=== PATIENT | female | born 1960 | race Caucasian/White ===

== ENCOUNTER 2016-11-21 12:27 | Emergency (ER) | payer OTHER ==
[~2016-11-21] VITALS: Ht 165.1 cm; Wt 99.3 kg
[~2016-11-21 12:27] MED LIST: BACLOFEN 10MG T10 MG PO; CALTRATE 600 +1 TA1 PO; CYMBALTA30 MG PO; DIAZEPAM5 M1 PO; FLOXIN 0.3%5 ML/BOT OT; HYDROXYZINE 25M25 MG PO; IBUPROFEN 600M600 MG PO; LIDODERM5% TP; LOMOTIL 0.025 M1 TAB PO; LORTAB 500 MG-71 TAB PO; MICRO-K 10 MEQ10 MEQ PO; MIRTAZAPINE15 M1 PO; MUCINEX FAST-M1 EAC2 PO; NAPROXEN SOD.550 MG PO; NEXIUM40 MG PO; NORCO 325 MG-51 TAB PO; NORTRIPTYLINE H10 MG PO; PROMETHAZINE HC25 M1 PO; SKELAXIN800 MG PO; SYNTHROID 0.0.125 MG PO; SYNTHROID 0.10.15 MG PO; TRAMADOL 50MG T50 MG PO; TRIAMCINOL30 GM/TUBE TP; VICODIN 5/500 T1 TAB PO; ZOFRAN ODT4 MG PO
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
--- OUTSIDE RECORDS SUMMARY | 2016-11-21 13:02 | External Medical Summary Rpt ---
Demographics Preferred Language Luxembourger Marital Status Unknown Taoist Affiliation Unknown Race Unknown Ethnic Group Unknown Author Author , Organization [employer] Address Unknown Phone Unavailable Purpose Continuity of Care Document - through 2016 Immunization No patient found.
--- OUTSIDE RECORDS SUMMARY | 2016-11-21 13:02 | External Medical Summary Rpt ---
Author Author TERRELL Stockton, [employer] Organization [employer] Address Unknown Phone Unavailable
--- OUTSIDE RECORDS SUMMARY | 2016-11-21 13:02 | External Medical Summary Rpt ---
Demographics Preferred Language Japanese Marital Status Unknown Lutheran Affiliation Unknown Race Unknown Ethnic Group Unknown Author Author , Organization [employer] Address Unknown Phone Unavailable Purpose Continuity of Care Document - through 2016 Immunization No patient found.
--- OUTSIDE RECORDS SUMMARY | 2016-11-21 13:02 | External Medical Summary Rpt ---
Author Author TERRELL Stockton, [employer] Organization [employer] Address Unknown Phone Unavailable
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
--- OUTSIDE RECORDS SUMMARY | 2016-11-21 13:02 | External Medical Summary Rpt ---
Author Author [employer] Organization [employer] Address Unknown Phone Unavailable Purpose Continuity of Care Document - through 2016
--- NOTE | 2016-11-21 13:14 | Emergency Room Report ---
See Addendum History of Present Illness Time Seen by 1252 Presenting Problem in Triage Pt arrived:Walked Presenting Problem:PT HAS HYPOTENSIVE SINCE TAKING A PROPANELOL 20MG ON MONDAY . DR STEWART ADVISED THEM TO COME HERE . PT HAS CHRONIC HEADACHES AND NECK PAIN Onset of symptoms date/time:11/18/16 or onset unknown for: Treatment Prior to Arrival: CLINICAL INFORMATICS SPEC Provided by: Sepsis Risk Assessment: Temp: 98.4 B/P: 98/77 MAP: 76 Pulse: 89 Resp: 20 Recent fever? N Clinical Suspician of Infection? N Mental Status: 1 - Regular (Normal Baseline) Sepsis Risk:Low Sepsis Risk Have you (or family members/close friends) recently traveled outside the [place]? N If Yes, where/when: Have you had exposure to infectious disease within the past month? N TB? Other? Specify: Patient with chronic pain issues, chronic nausea, also uncontrolled HTN. Placed on Propranaolol on October 29, [address] Stewart and initially on TID then on one daily, but noted four days ago BP was in low 80's. She stopped taking this medication three days ago. She still has somewhat low blood pressure. Reports less PO intake over the last few days. No vomiting. ALLERGIES Coded Allergies: sumatriptan (From IMITREX) (Severe, S-DROP IN B/P 02/01/16) Penicillins (Intermediate, I-HIVES 02/01/16) topiramate (From Topamax) (Intermediate, S-DROP IN B/P 11/03/16) Home Medications Active Scripts Ondansetron (Zofran 4MG Odt) 4 MG PO Q6HP PRN nausea and vomiting #24 ODT Prov: 10/15/13 Reported Medications Lidocaine (Lidoderm) 5 TP DAILY Levothyroxine Sodium (Synthroid 0.125MG) 0.125 MG PO DAILY PROMETHAZINE HCL (Promethazine 25mg Tab) 25 MG PO Q4HP PRN N/V Mirtazapine 15 MG PO DAILY BACLOFEN (Baclofen) 10 MG PO TID POTASSIUM CHL (Potassium Chloride) 99 MG PO BID #2 DIPHENOXYLATE HCL/ATROPINE (Lomotil 2.5-0.025 MG Tablet) 1-2 TAB PO EVERY 4 HRS PRN DIARRHEA OFLOXACIN (Floxin 0.3% Otic Solution 5ML) 1 DROP OT QIDP PRN EYES Dm/PE/Acetaminophen/Doxylamine (Mucinex Fast-Max Nite Cold-Flu) 2 EACH PO PRN PRN COUGH/CONGESTION Tramadol Hcl (Tramadol 50MG) 50 MG PO BID IBUPROFEN MICRONIZED (IBUPROFEN 600MG) 600 MG PO BID-QID Diazepam 5 MG PO QIDPRN NORTRIPTYLINE HCL (Nortriptyline Hydrochloride) 10 MG PO QHS #180 History Medical History General Angina: No CO: No Hypertension? No Hyperlipidemia? No CHF? No DVT? No PE? No COPD? No Asthma? No Anemia? No GERD? No Gastric ulcers? No GI Bleed? No Hernia? No Thyroid Problems? Yes Hypothyroidism? Yes CVA? No Seizures? No Diabetes? No Renal Insuffiency? No End Stage Renal Disease? No UTI? No Stones? No GB Disease: No Nephritic Syndrome? No Asplenia? No Hepatitis? No Sickle Cell Disease? No Arthritis? No Migraines? Yes Cataracts? No Glaucoma? No MRSA? No HIV? No TB? No Anxiety? No Depression? Yes Cancer? Yes Site: THYROID Immunization Hx DT/Tetanus 5-10 YRS Flu 2012-14FSN Pneumonia Refuses Surgical Hx Previous Surgery?Y X 2 TONSILS Tubal Ligation JAW SX PARTIAL THYROIDECTOMY MANAGER OF APPLICATION DEVELOPMENT Hx LMP menopause Family History Family Hx Diabetes Yes CAD Yes Hypertension Yes Hyperlipidemia Yes Cancer Yes TB No Social History Smoking Hx Smoker: Never Smoker Tobacco: No Alcohol Alcohol: No Review of Systems All Other Systems Reviewed and Negative Cardiovascular see HPI, denies chest pain Gastrointestinal see HPI Musculoskeletal see HPI (chronic pain) Physical Exam Vital Signs Vital Signs Date Time Temp Pulse Resp B/P Pulse O2 O2 Flow FiO2 Ox Delivery Rate 11/21 1404 97.4 68 20 109/67 98 11/21 1253 89 98/77 11/21 1253 79 112/71 07 1252 75 101/68 07 1235 98.4 74 20 99/65 98 General Appearance normal appearance, WD/WN, no apparent distress Eye Exam - bilateral eye normal exam, bilateral eye PERRL Neck normal inspection, non-tender, supple, full range of motion Respiratory Status Yes: trachea midline, chest symmetrical, non tender chest. No: respiratory distress, tender on palpation, use of accessory muscles, pain on inspiration, pain on expiration, productive cough, non productive cough. Lung Sounds bilateral: normal breath sounds, lungs clear. Cardiovascular normal exam, regular rate/rhythm, no peripheral edema, no gallop, no JVD, no murmur, no rub, normal peripheral pulses Gastrointestinal normal bowel sounds, normal exam, non tender, soft, no organomegaly, no pulsatile mass, no guarding Extremities normal range of motion Strength 5 Upper Ext (L), 5 Upper Ext (R), 5 Lower Ext (L), 5 Lower Ext (R) Neurologic alert, normal exam, no motor/sensory deficits, oriented x 3 Skin intact, normal color, warm/dry Medical Decision Making LABS/Meds/Orders Pt receiving controlled substance in ED? No Results/Orders Laboratory Tests 11/21/16 1334: Urine Color YELLOW, Urine Appearance CLEAR, Urine pH 6.0, Ur Specific [place] 1.015, Urine Protein NEGATIVE, Urine Ketones NEGATIVE, Urine Blood NEGATIVE, Urine Nitrate NEGATIVE, Urine Bilirubin NEGATIVE, Urine Urobilinogen 0.2, Ur Leukocyte Esterase 1+ H, Urine RBC 3-5, Urine WBC 5-10, Ur Squamous Epith Cells OCC, Urine Bacteria TRACE, Hyaline Casts OCC, Urine Glucose NEGATIVE 11/21/16 1300: Sodium 141, Potassium 4.1, Chloride 106, Carbon Dioxide 30, BUN 17, Creatinine 1.0, Estimated Creat Clear 101, Estimated GFR (MDRD) 58 L, Glucose 105, Calcium 9.0, Total Bilirubin 0.3, AST 19, ALT 39, Alkaline Phosphatase 81, Total Protein 7.1, Albumin 3.2 L, Globulin 3.9 H, Albumin/Globulin Ratio 0.8 L, WBC 6.9, RBC 4.32, Hgb 12.3, Hct 37.7, MCV 87.2, RDW 14.4, Plt Count 180, MPV 6.8 L, Gran % 62.8, Gran # 4.3, Lymphocytes % 28.9, Monocytes % 5.7, Eosinophils % 2.3, Basophils % 0.2, Lymphocytes # 2.0, Monocytes # 0.4, Eosinophils # 0.2, Basophils # 0.0, PUBS MCHC 32.7, MCH 28.5 Current Medication Orders Sig/Brian Start time Last Medication Dose Route Stop Time Status Admin Sodium Chloride 1,000 ML .STK-MED ONE 11/21 1337 DC IV Sodium Chloride 1,000 ML .Q1H1M 11/21 1315 DC 11/21 IV 11/21 1415 1338 Sodium Chloride 10 ML PRN PRN 11/21 1315 AC IV 11/22 1313 Sodium Chloride 10 ML PRN PRN 11/21 1300 AC IV 11/22 1252 Orders Procedure Date/time Status CULTURE, URINE 11/21 1334 Active URINALYSIS/COMPLETE 11/21 1332 Complete IV SALINE LOCK 11/21 1252 Active ORTHOSTATIC B/P 11/21 1252 Active CBC WITH AUTO DIFF 11/21 1252 Complete CHEM 12 PROFILE 11/21 1252 Complete Progress ED Progress Notes Date 11/21/16 Time 1440 Comment BP stable, staying around 108 systolic, feels better s/p IVF Departure Departure Time of Disposition 1440 Disposition DC Home or Self Care(routine) Clinical Impression Primary Impression: Low blood pressure reading Condition STABLE Referrals Terry HENRY,Aldo Hurst (Family) Additional Instructions Stop Propranolol, have Dr. Stewart recheck blood pressure in one to three days. Discharge Counseling Counseled pt/family regarding diagnosis, test results, medications/RX, home care, follow up needs ED Critical Care Critical Care No at 1442
[2016-11-21 13:35] LABS: HEMOGLOBIN 12.3 g/dL (12.2-16.2); LYMPH % 28.9 % (10-50.0)
[2016-11-21 14:06] LABS: URINE BILIRUBIN - DIPSTICK NEGATIVE (NEG); URINE BLOOD NEGATIVE (NEG)
[2016-11-21 14:24] LABS: URINE SQUAMOUS CELLS OCC #/hpf (0-5)
[2016-11-21] MEDS ORDERED: MACROBID100 M3 PO (15:54)
--- NOTE | 2016-11-21 16:02 | RADIOLOGY REPORT PS360 ---
CHEST-PORTABLE HISTORY: weakness ORDERING PHYSICIAN: Maryann Hu MD PATIENT AGE: 56 years COMPARISON: 02/23/2016 FINDINGS: The cardiomediastinal silhouette and pulmonary vascularity are within normal limits. The lungs are clear without infiltrates, suspicious nodules, or pleural effusions. No acute bony abnormalities. IMPRESSION: Negative chest, no acute finding
[2016-11-21 16:09] VITALS: BP 138/78
== END 2016-11-21 16:09 | disposition home or self-care (01) ==
LOC: ER 12:27
PROVIDERS: Emergency Medicine
DX: I95.9 Hypotension, unspecified (principal); R51 Headache

== ENCOUNTER → 2017-05-02 | Outpatient (CLI) | payer OTHER ==
[~2017-05-02] MED LIST changes: +MACROBID100 M3 PO; +MEDROL 4MG. DOSE4 MG PO; +ZITHROMAX Z PA250 MG PO
--- NOTE | 2017-05-02 15:50 | RADIOLOGY REPORT PS360 ---
CHEST(2 VIEWS-NOT PORTABLE) HISTORY: FEVER,CHILLS,COUGH ORDERING PHYSICIAN: Aldo Stewart MD PATIENT AGE: 56 years COMPARISON: 11/21/2016 FINDINGS: The cardiomediastinal silhouette and pulmonary vascularity are within normal limits. The lungs are clear without infiltrates, suspicious nodules, or pleural effusions. No acute bony abnormalities. IMPRESSION: Negative chest, no acute finding
== END ==
LOC: LAB 15:17
DX: R50.9 Fever, unspecified (principal); R05 Cough